=== PATIENT | female | born 1950 | race Caucasian/White ===

== ENCOUNTER 2019-02-03 09:06 | Day surgery (SDC) | payer MEDICARE, OTHER ==
[~2019-02-03] VITALS: Ht 162.6 cm; Wt 73.8 kg
[2019-02-03] MEDS ORDERED: normal saline 1000ml 1,000 ML IV PRN (09:30)
[2019-02-03] MEDS ORDERED: LIDOcaine 1%/PF 5ML 10 MG/ML VIAL ONE (09:34)
[2019-02-03 09:57] VITALS: BP_SYST 130; BP_SYST 144; BP_DIAS 57; BP_DIAS 74
[2019-02-03] MEDS ORDERED: GABA-581 PO (09:57)
[2019-02-03] MEDS ORDERED: LUBI24CA5 PO (09:57)
[2019-02-03] MEDS ORDERED: NABU750T2 PO (09:57)
[2019-02-03] MEDS ORDERED: FENO48TA4 PO (09:57)
[2019-02-03] MEDS ORDERED: ZOLP10TA5 PO (09:57)
[2019-02-03] MEDS ORDERED: PER10325T PO (09:57)
[2019-02-03] MEDS ORDERED: DULO-31 PO (09:57)
[2019-02-03] MEDS ORDERED: OMEP20CA10 PO (09:57)
[2019-02-03] MEDS ORDERED: normal saline 1000ml 1,000 ML IV SCH (10:11)
[2019-02-03 10:26] VITALS: BP 148/73
[2019-02-03 10:34] VITALS: BP 119/65
[2019-02-03 10:49] VITALS: BP 121/86
== END 2019-02-03 11:20 | disposition home or self-care (01) ==
LOC: SSTAY O 09:06
PROVIDERS: ATTEND Radiology Diagnostic Radiology
DX: R19.09 Other intra-abdominal and pelvic swelling, mass and lump (principal); Z85.3 Personal history of malignant neoplasm of breast; Z90.13 Acquired absence of bilateral breasts and nipples; Z98.49 Cataract extraction status, unspecified eye; Z88.8 Allergy status to other drugs, medicaments and biological substances; Z90.710 Acquired absence of both cervix and uterus; Z98.890 Other specified postprocedural states; Z79.899 Other long term (current) drug therapy
CPT/HCPCS: 49180; 76942; J2001; J7030; 88304

== ENCOUNTER 2025-01-16 09:15 | Outpatient (CLI) | payer MEDICARE, OTHER ==
[~2025-01-16 09:15] MED LIST: APIX5TAB3 PO; BUSP7.5T3 PO; DULO-31 PO; ESOM40CA66 PO; FURO-150 PO; GABA-581 PO; LEVO25CA5 PO; LUBI24CA40 PO; MONT-40 PO; PER10325T PO; ZOLP10TA5 PO; [UNRECOGNIZED DRUG - CODE] PO
== END 2025-01-16 23:59 | disposition home or self-care (01) ==
LOC: MRI02 09:15
PROVIDERS: ATTEND Podiatrist Foot & Ankle Surgery
DX: M19.071 Primary osteoarthritis, right ankle and foot (principal); M79.671 Pain in right foot; M20.11 Hallux valgus (acquired), right foot; T84.018D Broken internal joint prosthesis, other site, subsequent encounter; M20.41 Other hammer toe(s) (acquired), right foot
CPT/HCPCS: 73718